=== PATIENT | male | born 1990 | race Caucasian/White ===

== ENCOUNTER 2016-12-23 23:21 | Emergency (ER) | payer BC ==
[~2016-12-23] VITALS: Ht 165.1 cm; Wt 56.7 kg
[2016-12-23] MEDS ORDERED: ZYRTEC10 MG ORAL (23:44)
[2016-12-24] MEDS ORDERED: Norco 5mg/325mg tab ORAL ONE
--- NOTE | 2016-12-24 00:03 | Emergency Room Report ---
History of Present Illness General Chief Complaint: Lower Extremity Injury Source: Patient Present Illness HPI Is a 26-year-old male with no significant past medical history. He presents with chief complaint of right foot pain. He said a 35 pound weight fell off the bed and landed on the top of his right foot. He said that he felt bone moving around when he moves fifth toe. Denies any nausea vomiting. Denies any loss of consciousness. Pain is 9/10. Worse with movement. No other injury. This occurred about 2 hours ago. Allergies: Coded Allergies: SULFA (SULFONAMIDE ANTIBIOTICS) (Verified Allergy, Unknown, 12/23/16) SULFUR (Verified Allergy, Unknown, 12/23/16) Patient History Past Medical History: none, see triage record, old chart reviewed Past Surgical History: none Pertinent Family History: none Social History: Denies: smoking Immunizations: other Reviewed Nursing Documentation: PMH: Agreed, PSxH: Agreed Nursing Documentation-PMH Past Medical History: No History, Except For Hx Gastrointestinal Problems: Yes - double hernia, tosillectomy 2016 Review of Systems Eye: Denies: blurred vision, eye pain ENT: Denies: ear pain, nose congestion, throat swelling Respiratory: Denies: cough, shortness of breath Cardiovascular: Denies: chest pain, palpitations Gastrointestinal: Denies: abdominal pain, diarrhea, nausea, vomiting Musculoskeletal: Reports: joint pain, joint swelling, Denies: back pain Skin: Denies: rash Neurological: Denies: headache, numbness Endocrine: Denies: increased thirst, increased urine Hematologic/Lymphatic: Denies: easy bruising All Other Systems: negative except mentioned in HPI Physical Exam Vital Signs Date Time Temp Pulse Resp B/P Pulse Ox O2 Delivery O2 Flow Rate FiO2 12/23/16 23:38 98.2 115 16 151/81 95 Room Air vitals with tachycardia and hypertension Sp02 EP Interpretation: reviewed, normal General Appearance: well appearing, no apparent distress, alert Head: normocephalic, atraumatic Eyes: bilateral eye EOMI, bilateral eye PERRL ENT: hearing grossly normal, normal pharynx Neck: full range of motion, supple, no meningismus Respiratory: chest non-tender, lungs clear, normal breath sounds Cardiovascular #1: regular rate, rhythm, no murmur Gastrointestinal: normal bowel sounds, non tender, no mass, no organomegaly, no bruit, non-distended Musculoskeletal: back normal, normal range of motion, other - Right foot: Ecchymosis and edema to fifth metatarsal bone distally. Also ecchymosis to the fifth toe. Sensation normal. Pulses normal. Neurologic: alert, oriented x3 Psychiatric: mood/affect normal Skin: warm/dry Procedures Splinting Splinting : Consent: Verbal Location: Fifth toe Pre-Proc Neuro Vasc Exam: normal Post-Proc Neuro Vasc Exam: normal Patient Tolerated: Well Complications: None Progress fourth and fifth toe dalila taped. Orthopedics and crutches given. Patient tolerated procedure without a problem. Medical Decision Making Diagnostic Impression: Primary Impression: Toe fracture, right Qualified Codes: S92.514A - Nondisplaced fracture of proximal phalanx of right lesser toe(s), initial encounter for closed fracture ER Course Patient presents with proximal phalanx fracture of the fifth toe. No dislocation. No evidence of metatarsal fracture. We'll discharge home. Other X-Ray Diagnostic Results # of Views/Limited Vs Complete: 3 View Interpretation: no dislocation, no soft tissue swelling, other - Proximal phalanx fracture of the fifth toe. Indication: Pain Impression: Other - Proximal phalanx fracture of the fifth toe Date Electronically Signed: Dec 24, 2016 Time Electronically Signed: 00:19 Interpreting ER Physician: Nick Tavares MD Last Vital Signs Date Time Temp Pulse Resp B/P Pulse Ox O2 Delivery O2 Flow Rate FiO2 12/23/16 23:38 98.2 115 16 151/81 95 Room Air Status: improved Disposition: HOME, SELF-CARE Condition: Stable Scripts Ibuprofen* (MOTRIN*) 600 Mg Tablet 600 MG ORAL THREE TIMES A DAY, #30 TAB 0 Refills Prov: NICK TAVARES M.D. 12/24/16 Additional Instructions: Ice pack to the area. Elevate the leg. Return if symptom worsen. Followup with your DrAmandeep in 7 days. NICK TAVARES M.D. Dec 24, 2016 00:03
[2016-12-24] MEDS ORDERED: IBUPROFEN600 MG ORAL (00:19)
[2016-12-24 00:30] VITALS: BP 151/81
--- NOTE | 2016-12-24 12:29 | Diagnostic Imaging Report ---
Indication: TRAUMA, pain Technique: 3 views right foot Comparison: None Findings: There is an oblique fracture of the fifth proximal phalangeal shaft.. This is laterally displaced by a few millimeters. There is also a corner fracture of the distal lateral aspect of the fifth middle phalanx. This is nondisplaced. There is also suggestion of a fracture of the base of the fifth distal phalanx. No other acute fractures. No dislocations. The joint spaces are preserved. There is mild hallux valgus and metatarsus adductus. Impression: Positive for fifth proximal, middle, and distal phalangeal fractures The medical record indicates this was recognized by the emergency room physician. Findings also discussed by phone with Dr. Caro in emergency room at the time of interpretation
== END 2016-12-24 00:30 | disposition home or self-care (01) ==
LOC: EMR 23:45
DX: S92.534A Nondisplaced fracture of distal phalanx of right lesser toe(s), initial encounter for closed fracture (principal); S92.514A Nondisplaced fracture of proximal phalanx of right lesser toe(s), initial encounter for closed fracture; S92.524A Nondisplaced fracture of middle phalanx of right lesser toe(s), initial encounter for closed fracture; W20.8XXA Other cause of strike by thrown, projected or falling object, initial encounter; Y92.013 Bedroom of single-family (private) house as the place of occurrence of the external cause; Z88.2 Allergy status to sulfonamides; Z88.8 Allergy status to other drugs, medicaments and biological substances
CPT/HCPCS: 29540; 99283